=== PATIENT | male | born 1985 | race Caucasian/White ===

== ENCOUNTER 2016-06-23 15:21 | Emergency (ER) | payer MEDICAID, OTHER ==
[~2016-06-23] VITALS: Wt 61.5 kg
[~2016-06-23 15:21] MED LIST: MAG355OR15 PO
[2016-06-23] MEDS ORDERED: LIDOCAINE/MYLANTA 40 ML BTL PO ONE (17:30)
[2016-06-23] MEDS ORDERED: ACET500C5 PO (17:50)
[2016-06-23] MEDS ORDERED: FAMO-18 PO (17:50)
[2016-06-23] MEDS ORDERED: SUCR1TAB56 PO (17:54)
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
[2016-06-23 18:14] VITALS: BP 118/60; PULSE 56; RESP 18; TEMP 97.5
== END 2016-06-23 18:15 | disposition home or self-care (01) ==
LOC: EDBD 15:21 → FTE 15:21
DX: R10.13 Epigastric pain (principal)
CPT/HCPCS: 99283